=== PATIENT | male | born 1935 | race Caucasian/White ===

== ENCOUNTER 2024-12-16 10:06 | Outpatient (REF) | payer MEDICARE, SELFPAY ==
--- NOTE | ~2024-12-16 | XR_ITS ---
EXAMINATION: XR HIP, LEFT CLINICAL INFORMATION: M25.552 - Pain in left hip COMPARISON: None available. TECHNIQUE: Two views of the left hip. AP view pelvis. FINDINGS: No acute cortical disruption or malalignment. There is mild sclerosis at the articular surface of the left and right acetabulum. No lytic or blastic lesions. Stents in the distal abdominal aorta and common iliac arteries. 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 XR/XR hip LT min 2V IMPRESSION: No acute fracture or dislocation, left hip. Electronically signed by: Sandoval Banerjee MD 12/16/2024 11:23 AM [facility]
== END 2024-12-16 10:07 | disposition home or self-care (01) ==
LOC: HO.XRAY 10:06
PROVIDERS: Visit Provider Physician Assistant
DX: M25.552 Pain in left hip (principal); S76.012A Strain of muscle, fascia and tendon of left hip, initial encounter
CPT/HCPCS: 73502; 99202

== ENCOUNTER 2024-12-16 10:06 | Outpatient (AMB) | payer MEDICARE, SELFPAY ==
--- OUTSIDE RECORDS SUMMARY | 2024-12-16 10:48 | XMS_ITS | Clinical Summary ---
Author Organization [facility] Address [phone] [place] [id number] Care Team Providers Care Tube Washer Name Role Phone Mohit De La Torre MD Primary Care Provider [phone] Allergies No known active allergies Medications Medication Sig Dispensed Refills Start Date End Date Status amLODIPine (NORVASC) 2.5 MG tablet Take 2.5 mg by mouth daily. Active atorvastatin (LIPITOR) 40 MG tablet Take 10 mg by mouth daily. Active finasteride (PROSCAR) 5 mg tablet Take 5 mg by mouth daily. Active metoprolol succinate (TOPROL-XL) 25 MG 24 hr tablet Take 25 mg by mouth daily. Active tamsulosin (FLOMAX) 0.4 mg Cp24 Take 0.4 mg by mouth daily. Active omeprazole (PRILOSEC) 20 MG capsule Take 20 mg by mouth daily. Active multivitamins with minerals- folic acid-lycopene (MEN'S ONE-A-DAY) 400-300 mcg Tab Take 1 tablet by mouth daily. Active fluticasone-salmeter ol (ADVAIR DISKUS) 100-50 mcg/dose DISKUS Inhale 100 mcg/actuation of fluticasone into the lungs. Active Active Problems Problem Noted Date Diagnosed Date BPH (benign prostatic hyperplasia) 04/29/2016 Social History Tobacco Use Types Packs/Day Years Used Date Smoking Tobacco: Former Cigarettes 1 30 0 11/29/1954 - 11/29/1984 Alcohol Use Standard Drinks/Week Comments Not Asked 0 (1 standard drink = 0.6 oz pur e alcohol) Education Answer Date Recorded Are you interested in more education? Not on steven e 02/28/2023 Are you concerned about learning? Not on file 02/28/2023 No 02/28/2023 No 02/28/2023 Digital Access Answer Date Recorded No 03/31/2023 No 03/31/2023 No 03/31/2023 Reliable internet access at home? Not on file 03/31/2023 Device with a working camera? Not on file Sex and Gender Information Value Date Recorded Sex Assigned at Not on file Gender Identity Not on file Sexual Orientation Not on file Last Filed Vital Signs Vital Sign Reading Time Taken Comments Blood Pressure 129/81 04/29/2016 1:04 PM EDT Pulse 81 04/29/2016 1:04 PM EDT Temperature - - Respiratory Rate - - Oxygen Saturation - - Inhaled Oxygen Concentration - - Weight 80.3 kg (177 lb) 04/29/2016 1:04 PM EDT Height 172.7 cm (5' 8 ) 04/29/2016 1:04 PM EDT Body Mass Index 26.91 04/29/2016 1:04 PM EDT Plan of Treatment Health Maintenance Due Date Last Done Comments DEPRESSION SCREENING 1947 HEPATITIS B SCREENING 1955 RSV VACCINE (1 - 1-dose 75+ series) 2012 PNEUMOCOCCAL VACCINES (50+ years) (2 of 2 - PCV) 04/05/2014 04/05/2013 Adult Td,Tdap Booster 03/05/2023 03/05/2013 INFLUENZA VACCINE (#1) 2024 , 07/14/2018, 07/18/2017, Additional history exists COVID-19 VACCINE ( season) 2024 01/03/2021, 12/06/2020 ZOSTER VACCINES Completed 10/02/2020, 12/2019, 03/05/2013 HEPATITIS A VACCINES Aged Out No long er eligible based on patient's age to complete this topic HEPATITIS B VACCINES Aged Out No long er eligible based on patient's age to complete this topic HIB VACCINES Aged Out No longer eligi ble based on patient's age to complete this topic MENINGOCOCCAL VACCINES (ACWY) Aged Out No longer eligible based on patient's age to complete this topic Medical Devices Not on file Care Teams Tube Washer Relationship Specialty Start Date End Date Mohit De La Torre MD PCP - General Internal Medicine 04/03/16 Additional Source Comments The information contained in this document represents components of the legal health record. It is not the complete legal health record.[facility]
--- OUTSIDE RECORDS SUMMARY | 2024-12-16 10:48 | XMS_ITS | Clinical Summary ---
Author Organization [facility] it Address [address] [place] [address] Care Team Providers Care Lock Tender Name Role Phone Avani Orozco MD Primary Care Provider [phone] Family History Medical History Relation Name Comments Autoimmune disease Neg Hx Breast cancer Neg Hx Colon cancer Neg Hx Coronary artery disease Neg Hx Diabetes Neg Hx Heart attack Neg Hx Heart failure Neg Hx Hyperlipidemia Neg Hx Hypertension Neg Hx Mental illness Neg Hx Prostate cancer Neg Hx Sleep apnea Neg Hx Thyroid disease Neg Hx Social History Tobacco Use Types Packs/Day Years Used Date Smoking Tobacco: Former Cigarettes Q uit: 06/14/1992 Smokeless Tobacco: Former Quit: 06/14/1992 Alcohol Use Standard Drinks/Week Comments Yes 0 (1 standard drink = 0.6 oz pur e alcohol) Sex and Gender Information Value Date Recorded Sex Assigned at Not on file Legal Sex Male 2:41 AM EST Gender Identity Not on file Sexual Orientation Not on file Obstetrics History Last Filed Vital Signs Vital Sign Reading Time Taken Comments Blood Pressure 147/70 06/16/2022 11:17 AM EDT Pulse 84 06/16/2022 11:17 AM EDT Temperature - - Respiratory Rate - - Oxygen Saturation - - Inhaled Oxygen Concentration - - Weight - - Height - - Body Mass Index - - Plan of Treatment Health Maintenance Due Date Last Done Comments DTaP,Tdap,and Td Vaccines (1 - Tdap) 1956 Pneumococcal Vaccine: 50+ Ye ars (1 of 1 - PCV) 1987 Zoster Vaccines (1 of 2) 1987 RSV Immunization Patients 60 + Years Old (1 - 1-dose 75+ series) 2012 Cholesterol Screening (Lipid Panel) 10/06/2022 Depression Screening 10/06/2022 Falls Risk Assessment 10/06/2022 Social Influencers of Health Screening 10/06/2022 COVID-19 Vaccine ( - 2023-2 5 season) 2024 Influenza Vaccine (#1) 2024 HIB Vaccines Aged Out No longer eligi ble based on patient's age to complete this topic HPV Vaccines Aged Out No longer eligi ble based on patient's age to complete this topic Hepatitis A Vaccines Aged Out No long er eligible based on patient's age to complete this topic Hepatitis B Vaccines Aged Out No long er eligible based on patient's age to complete this topic IPV Vaccines Aged Out No longer eligi ble based on patient's age to complete this topic MMR Vaccines Aged Out No longer eligi ble based on patient's age to complete this topic Meningococcal ACWY Vaccine Aged Out N o longer eligible based on patient's age to complete this topic Meningococcal B Vacine Aged Out No lo nger eligible based on patient's age to complete this topic RSV Immunization Patients Un chao 20 months Aged Out No longer eligible b ased on patient's age to complete this topic Varicella Vaccines Aged Out No longer eligible based on patient's age to complete this topic Care Teams Lock Tender Relationship Specialty Start Date End Date Avani Orozco MD [address] [place] [phone] PCP - General 03/11/23
[2024-12-16 11:21] VITALS: BMI 26.1
--- NOTE | 2024-12-16 11:21 | A.OFFVIS_ITS ---
Vital Signs 12/16/24 11:21 Height 5 ft 8 in Weight 172 lb BMI 26.1 Intake Visit Reasons: FC - left femur/hip pain, DOI 12/09/24 Intake Note: Varun 88 yr old male presents today with his son Lopez for his left femur/ hip pain that started 12/09/24 S/P falling down on ice. Seen at [facility] where he was told no fracture. He was referred to [facility] but they didnt have appt until January 27 2025. Currently states he has 4/10 on pain scale. Pain when bending his knee, waking and applying pressure. Denies numbness or tingling in toes. No knee or hip surgery or injections. Allergies No Known Allergies Allergy (Verified 12/16/24 11:24) HPI HPI FC - left femur/hip pain, DOI 12/09/24: Details: 88 yo male presents to the office today for left hip/thigh pain. He states on 12/09/24 he was out clearing his driveway when he slipped on ice and fell. He felt a sharp pain / pull in the left groin region. He was seen at [facility] [place] [facility], xrays obtained and he was placed in an immobilizer and referred to our office for ortho eval. [facility] Medical History (Updated 12/16/24 @ 11:37 by Hong Palomino PA-C) Hx of aneurysm Surgical History (Updated 12/16/24 @ 11:27 by JACK Muñoz) History of repair of aneurysm of abdominal aorta using endovascular stent graft Social History (Updated 12/16/24 @ 11:26 by JACK Muñoz) Current occupational status: retired Current occupation: rt hand Review of Systems Const All systems reviewed & are unremarkable except as noted in HPI and below Physical Exam Vital Signs: BMI result Body Mass Index 26.1 Const General: cooperative and no acute distress Orientation/consciousness: patient oriented x3 Resp Effort & Inspection: normal respiratory effort and able to speak in complete sentences Cardio Peripheral pulses: Peripheral pulses 2+ throughout Neuro General: patient oriented x3 Extrem Other: Left hip rom full without pain. He has ecchymosis in the thigh down to the knee. No pain in the knee with ROM or palpation. He has pain with hip flexion and adduction. NVI. Results Reviewed Results Reviewed: Xrays were obtained in the office today and personally reviewed by me of the left hip show avulsion fragment along the acetabulum Assessment & Plan Assessment & Plan (1) Strain of left hip: Code(s): S76.012A - Strain of muscle, fascia and tendon of left hip, initial encounter Category: Medical Plan: It appears he may have an avulsion fragment from the adductors. I recommend DC immobilizer and begin PT for strength and stretching exercises. I did explain to the patient 1st 2 weeks of an acute injury are usually the motion comfortable with swelling and pain and I would expect overall 6-8 weeks for somewhat full recovery. if symptoms persist or worsen he will contact our office, mariajose gambino. Orders: Orders XR hip LT min 2V Today M25.552 - Pain in left hip PT Evaluation and Treatment Today S76.012A - Strain of muscle, fascia and tendon of left hip, initial encounter Coding Level of Care Code New Pt Level 3 (25992) Complex EM visit Add On G2211 Diagnoses Strain of left hip S76.012A
== END 2024-12-16 11:53 | disposition home or self-care (01) ==
PROVIDERS: Visit Provider Physician Assistant
DX: S76.012A Strain of muscle, fascia and tendon of left hip, initial encounter (principal); W00.0XXA Fall on same level due to ice and snow, initial encounter
CPT/HCPCS: 99203

== ENCOUNTER → 2024-12-16 10:29 | Outpatient (BNV) | payer MEDICARE, SELFPAY | PROVIDERS: Visit Provider Radiology Diagnostic Radiology | DX: M25.552 Pain in left hip (principal) | CPT/HCPCS: 73502 ==